=== PATIENT | male | born 1995 | race Caucasian/White ===

== ENCOUNTER 2017-01-13 23:03 | Emergency (ER) | payer BC ==
--- NOTE | 2017-01-14 01:24 | ED CLINICAL REPORT ---
Clinical Report - Physicians/Mid Levels [facility] [address] [place] [address] 01/13/2017 23:06 Patient: MAYE EDWARDS Arrived- By private vehicle. Historian- patient. HISTORY OF PRESENT ILLNESS Chief Complaint: Injury to the left foot. The injury happened today. (jumping). ( does not know how he landed). Patient is experiencing moderate pain. Patient denies injury to the head or neck. No other injury. (no loc.). REVIEW OF SYSTEMS The patient complains of pain on weight bearing. He has had swelling. No skin laceration. All systems otherwise negative, except as recorded above. PAST HISTORY See nurses notes. Tetanus immunization status is up-to-date. Problems: no known problems. Additional Surgeries: no known surgeries. Medications: None. Allergies: No Known Drug Allergy. SOCIAL HISTORY Never smoker. No alcohol use or drug use. No recent travel. Is a local resident. ADDITIONAL NOTES The nursing notes have been reviewed. PHYSICAL EXAM Vital Signs: 01/13/2017 23:52 BP: 123/74. HR: 93. RR: 16. O2 saturation: 100%. Temp: 98.9 F. Pain level now: 8/10. Blood pressure normal. Oxygen saturation normal. Appearance: Alert. Oriented X3. No acute distress. (non-toxic). Head: Head atraumatic. (normocephalic). Neck: Normal inspection. Neck supple. C-spine non-tender. No vertebral tenderness. CVS: Normal heart rate and rhythm. Heart sounds normal. Pulses normal. Respiratory: No respiratory distress. Breath sounds normal. Chest nontender. No rales, rhonchi or wheezes. Abdomen: No visible injury. Soft and nontender. Bowel sounds normal. Back: Normal inspection. No tenderness. ROM normal. No vertebral point tenderness, soft tissue tenderness or limitation in ROM. Skin: Skin intact. Skin warm and dry. Extremities: (tenderness and ecchymosis over the base of the fifth on the left foot. No other bony tenderness or abnormalities noted on examination. Foot is neurovascularly intact. Good dorsalis pedis and posterior tibialis pulses noted and 2+ compared to the contralateral side. Compartments are soft. No other overlying skin changes. Skin is intact. Rest). LABS, X-RAYS, AND EKG Lt Foot X-ray: (vulsion fracture at the base of the fifth metatarsal.). Views: 3 view foot series, AP, lateral and oblique. Technique: good. The X-rays were independently viewed by me and interpreted contemporaneously by me. PROGRESS AND PROCEDURES Course of Care: The patient is a pleasant 21-year-old male with no pertinent past medical history of present for evaluation of left-sided foot pain. On examination, patient has ecchymosis and swelling noted to the area. Patient has tenderness to the base of the fifth metatarsal. There is also overlying ecchymosis. His foot is neurovascularly intact. No concern for compartment syndrome at this time. X-ray of the patient's foot was reviewed as it was ordered prior to evaluation from triage. Foot x-ray indicates the patient has an avulsion type fracture of the the base of the fifth metatarsal. Does not appear to be a Sheth fracture. Patient be treated with a walking boot andfollow up with podiatry. Patient is agreeable to the treatment plan. On repeat examination, patient continues to be neurovascularly intact. I did discuss with the patient potential complication with poor healing for the fractureand need forpodiatry follow-upand monitoring. Patient agreed to the treatment and plan. Did not fill patient is being admitted to the hospital or require further emergency department workup/evaluation. Discussed the patient workup, diagnosis, home care, follow-up, and return precautions. All questiohe patient expressed understanding of these instructions and was agreeable to them. Disposition: Discharged. Condition: good. CLINICAL IMPRESSION 01/13/2017 23:52 BP: 123/74. HR: 93. RR: 16. O2 saturation: 100%. Temp: 98.9 F. Pain level now: 8/10. Blood pressure normal. Oxygen saturation normal. Closed avulsion fracture of the left fifth metatarsal (acute). INSTRUCTIONS Warnings: GENERAL WARNINGS: Return or contact your physician immediately if your condition worsens or changes unexpectedly, if not improving as expected, or if other problems arise. Specifically return if pain, vomiting, bleeding, breathing difficulty or fever. Your Current Medications: CONTINUE TAKING THE FOLLOWING MEDICATIONS: None*. Prescription Medications: Percocet 5 mg/325 mg: take 1 tablet orally every 6 hours as needed for pain. Dispense fifteen (15). No refill. Substitution is permissible. Follow-up: Return to the emergency department as needed. Follow up with your doctor in three days. Reason for referral: recheck today's concerns. Summary of care provided to patient via paper. Screening today revealed the patient's blood pressure to be in the normal range. The patient should follow up with a primary care provider for blood pressure management. Understanding of the discharge instructions verbalized by patient. Follow-up with: Rufus Fierro DPM, Podiatry, , [address], [place], [address] Follow up in one week. Reason for referral: recheck today's concerns. Summary of care provided to patient via paper. (Electronically signed by Tushar Sawyer Dr. 01/17/2017 12:35)
--- NOTE | 2017-01-14 01:24 | ED CLINICAL REPORT ---
Clinical Report - Physicians/Mid Levels [facility] [address] [place] [address] 01/13/2017 23:06 Patient: MAYE EDWARDS Arrived- By private vehicle. Historian- patient. HISTORY OF PRESENT ILLNESS Chief Complaint: Injury to the left foot. The injury happened today. (jumping). ( does not know how he landed). Patient is experiencing moderate pain. Patient denies injury to the head or neck. No other injury. (no loc.). REVIEW OF SYSTEMS The patient complains of pain on weight bearing. He has had swelling. No skin laceration. All systems otherwise negative, except as recorded above. PAST HISTORY See nurses notes. Tetanus immunization status is up-to-date. Problems: no known problems. Additional Surgeries: no known surgeries. Medications: None. Allergies: No Known Drug Allergy. SOCIAL HISTORY Never smoker. No alcohol use or drug use. No recent travel. Is a local resident. ADDITIONAL NOTES The nursing notes have been reviewed. PHYSICAL EXAM Vital Signs: 01/13/2017 23:52 BP: 123/74. HR: 93. RR: 16. O2 saturation: 100%. Temp: 98.9 F. Pain level now: 8/10. Blood pressure normal. Oxygen saturation normal. Appearance: Alert. Oriented X3. No acute distress. (non-toxic). Head: Head atraumatic. (normocephalic). Neck: Normal inspection. Neck supple. C-spine non-tender. No vertebral tenderness. CVS: Normal heart rate and rhythm. Heart sounds normal. Pulses normal. Respiratory: No respiratory distress. Breath sounds normal. Chest nontender. No rales, rhonchi or wheezes. Abdomen: No visible injury. Soft and nontender. Bowel sounds normal. Back: Normal inspection. No tenderness. ROM normal. No vertebral point tenderness, soft tissue tenderness or limitation in ROM. Skin: Skin intact. Skin warm and dry. Extremities: (tenderness and ecchymosis over the base of the fifth on the left foot. No other bony tenderness or abnormalities noted on examination. Foot is neurovascularly intact. Good dorsalis pedis and posterior tibialis pulses noted and 2+ compared to the contralateral side. Compartments are soft. No other overlying skin changes. Skin is intact. Rest). LABS, X-RAYS, AND EKG Lt Foot X-ray: (vulsion fracture at the base of the fifth metatarsal.). Views: 3 view foot series, AP, lateral and oblique. Technique: good. The X-rays were independently viewed by me and interpreted contemporaneously by me. PROGRESS AND PROCEDURES Course of Care: The patient is a pleasant 21-year-old male with no pertinent past medical history of present for evaluation of left-sided foot pain. On examination, patient has ecchymosis and swelling noted to the area. Patient has tenderness to the base of the fifth metatarsal. There is also overlying ecchymosis. His foot is neurovascularly intact. No concern for compartment syndrome at this time. X-ray of the patient's foot was reviewed as it was ordered prior to evaluation from triage. Foot x-ray indicates the patient has an avulsion type fracture of the the base of the fifth metatarsal. Does not appear to be a Sheth fracture. Patient be treated with a walking boot andfollow up with podiatry. Patient is agreeable to the treatment plan. On repeat examination, patient continues to be neurovascularly intact. I did discuss with the patient potential complication with poor healing for the fractureand need forpodiatry follow-upand monitoring. Patient agreed to the treatment and plan. Did not fill patient is being admitted to the hospital or require further emergency department workup/evaluation. Discussed the patient workup, diagnosis, home care, follow-up, and return precautions. All questiohe patient expressed understanding of these instructions and was agreeable to them. Disposition: Discharged. Condition: good. CLINICAL IMPRESSION 01/13/2017 23:52 BP: 123/74. HR: 93. RR: 16. O2 saturation: 100%. Temp: 98.9 F. Pain level now: 8/10. Blood pressure normal. Oxygen saturation normal. Closed avulsion fracture of the left fifth metatarsal (acute). INSTRUCTIONS Warnings: GENERAL WARNINGS: Return or contact your physician immediately if your condition worsens or changes unexpectedly, if not improving as expected, or if other problems arise. Specifically return if pain, vomiting, bleeding, breathing difficulty or fever. Your Current Medications: CONTINUE TAKING THE FOLLOWING MEDICATIONS: None*. Prescription Medications: Percocet 5 mg/325 mg: take 1 tablet orally every 6 hours as needed for pain. Dispense fifteen (15). No refill. Substitution is permissible. Follow-up: Return to the emergency department as needed. Follow up with your doctor in three days. Reason for referral: recheck today's concerns. Summary of care provided to patient via paper. Screening today revealed the patient's blood pressure to be in the normal range. The patient should follow up with a primary care provider for blood pressure management. Understanding of the discharge instructions verbalized by patient. Follow-up with: Rufus Fierro DPM, Podiatry, , [address], [place], [address] Follow up in one week. Reason for referral: recheck today's concerns. Summary of care provided to patient via paper. (Electronically signed by Tushar Sawyer Dr. 01/17/2017 12:35)
--- NOTE | 2017-01-14 01:24 | ED ORDER SUMMARY ---
..... Patient: MAYE EDWARDS T OrderSheet [facility] VisitID: [id number] [address] [place] [address] 21y, M Registration Date/Time: 01/13/2017 ORDER SHEET Weight: 90.7 kg (stated) Allergies: No Known Drug Allergy GENERAL ORDERS: Foot 3V Left Urgent (00:47 01/14/2017 Bill Lyman.NRaven per protocol) (Ack 0:48 [facility] Web Ui Designer) (0:58 Clemente) - (surgical boot, left) (01:23 01/14/2017 Annalisa Frost) (1:58 JQuivekassie R.N.) MEDICATION ORDERS: Percocet PO 5/325 mg (HIGH ALERT MEDICATION, NOW) (01:41 01/14/2017 Annalisa Frost) (Ack 1:54 JQuivekassie R.N.) (1:58 JQuivey R.N.) IV FLUIDS: ORDER SHEET NOTES: [Electronically signed by Chucho Hyatt R.N. (02:59 01/14/2017)] [Electronically signed by Tushar Sawyer Dr. (12:35 01/17/2017)] [Electronically locked/signed by Chucho Hyatt R.N. (02:59 01/14/2017)]
--- NOTE | 2017-01-14 01:24 | ED NURSING NOTES ---
Clinical Report - Nurses [facility] [address] [place] [address] 01/13/2017 23:06 Patient: MAYE EDWARDS TRIAGE Triage time 23:54. Acuity: LEVEL 4. Chief Complaint: INJURY TO LEFT ANKLE. 23:57. --23:57 Princess Mendieta R.N. 23:52 01/13/17. BP: 123/74 taken on the left arm, via an automated monitor, while sitting. HR: 93 (regular and normal rate). RR: 16 (regular, unlabored and normal). O2 saturation: 100% on room air. Temp: 98.9 F (oral). Pain level now: 07/06. --23:57 Princess Mendieta R.N. Weight: 90.7 kg stated. Height/Length: 73 inches Per Patient. BMI: 26.4. --23:53 Princess Mendieta R.N. Medications None. --23:56 Princess Mendieta R.N. Allergies No Known Drug Allergy. --23:56 Princess Mendieta R.N. History Arrived by private vehicle. Historian: patient. Accompanied by mother. This occurred (3 hours ago). Mechanism of injury: sustained an eversion injury while jumping. Treatment TRAINING ANALYST: (motrin). PAST MEDICAL HX: Tetanus status: unknown. Immunizations: status is unknown. SOCIAL HX: Never smoker. No alcohol use or drug use. FALL RISK ASSESSMENT: Fall risk assessment completed. No fall risk identified. NUTRITIONAL RISK ASSESSMENT: The nutritional risk assessment revealed no deficiencies. FUNCTIONAL ASSESSMENT: Functional assessment: no impairments noted. LEARNING NEEDS ASSESSMENT: The learning needs assessment revealed no barriers. SKIN INTEGRITY ASSESSMENT: Skin integrity risk assessment completed. No skin integrity risk identified. --23:57 Princess Mendieta R.N. Treatment TRAINING ANALYST: Took ibuprofen. (600mg at 2300). --00:49 Chucho Hyatt R.N. PROBLEMS: no known problems. ADDITIONAL SURGERIES: no known surgeries. Interventions ID band on patient. --23:57 Princess Mendieta R.N. PHYSICAL ASSESSMENT 00:48. To room via wheelchair. GENERAL / NEURO / PSYCH: Oriented X 4. Alert. EXTREMITIES: Extremity pulses are within normal limits. Neuro-vascular status intact to the extremity. Left foot: swelling and ecchymosis. SKIN: Skin intact. Skin is warm and dry. --00:48 Chucho Hyatt R.N. NURSING PROGRESS NOTES 00:48. Two patient identifiers checked. Call light placed in reach. Bed placed in lowest position. Brakes of bed on. Patient ready for evaluation- chart flagged. --00:48 Chucho Hyatt R.N. 00:52. Cold pack applied to the left foot. --00:52 Chucho Hyatt R.N. 00:52 Portable x-ray left foot. --00:52 Chucho Hyatt R.N. 01:58 01/14/2017 Percocet (Oxycodone-Acetaminophen) PO 5/325 mg Tablets 1 tab given. Allergies verified, confirmed 5 rights and sedative warning given to the patient and patient's family. --01:58 Chucho Hyatt R.N. Ortho boot applied to left foot by [employer] (0155). --02:00 Soraya Dunn Extremities: Neuro-vascular status intact to the extremities. 02:00. The patient is calm and resting quietly. Overall patient status- he states feels better. GENERAL / NEURO / PSYCH: Alert. Oriented X 4. RESPIRATORY: No respiratory distress. SKIN: Skin is warm and dry. --02:05 Chucho Hyatt R.N. DISPOSITION / DISCHARGE Departure time: 02:05. Condition at departure: stable. No learning barriers present. Discharge instructions provided and reviewed with the patient and parent. Reviewed medication(s) side effects, precautions, dosing and course information. Prescription(s) given to the patient. Patient and parent verbalized understanding. The patient was discharged home and accompanied by parent. He left the Emergency Department ambulatory and via private vehicle. Parent driving. FALL RISK ASSESSMENT: Fall risk assessment completed. No fall risk identified. --02:05 Chucho Hyatt R.N. 02:03 01/14/17. BP: 108/71. HR: 68. RR: 14. O2 saturation: 99%. Pain level now: 01/06. --02:05 Chucho Hyatt R.N. Locked/Released at 01/14/2017 2:59 by Chucho Hyatt R.N.
--- NOTE | 2017-01-14 01:24 | ED ORDER SUMMARY ---
..... Patient: MAYE EDWARDS T OrderSheet [facility] VisitID: [id number] [address] [place] [address] 21y, M Registration Date/Time: 01/13/2017 ORDER SHEET Weight: 90.7 kg (stated) Allergies: No Known Drug Allergy GENERAL ORDERS: Foot 3V Left Urgent (00:47 01/14/2017 Bill Lyman.NRaven per protocol) (Ack 0:48 [facility] Manager Service Desk) (0:58 Clemente) - (surgical boot, left) (01:23 01/14/2017 Annalisa Frost) (1:58 JQuivekassie R.N.) MEDICATION ORDERS: Percocet PO 5/325 mg (HIGH ALERT MEDICATION, NOW) (01:41 01/14/2017 Annalisa Frost) (Ack 1:54 JQuivekassie R.N.) (1:58 JQuivey R.N.) IV FLUIDS: ORDER SHEET NOTES: [Electronically signed by Chucho Hyatt R.N. (02:59 01/14/2017)] [Electronically signed by Tushar Sawyer Dr. (12:35 01/17/2017)] [Electronically locked/signed by Chucho Hyatt R.N. (02:59 01/14/2017)]
--- NOTE | 2017-01-14 01:24 | ED NURSING NOTES ---
Clinical Report - Nurses [facility] [address] [place] [address] 01/13/2017 23:06 Patient: MAYE EDWARDS TRIAGE Triage time 23:54. Acuity: LEVEL 4. Chief Complaint: INJURY TO LEFT ANKLE. 23:57. --23:57 Princess Mendieta R.N. 23:52 01/13/17. BP: 123/74 taken on the left arm, via an automated monitor, while sitting. HR: 93 (regular and normal rate). RR: 16 (regular, unlabored and normal). O2 saturation: 100% on room air. Temp: 98.9 F (oral). Pain level now: 07/06. --23:57 Princess Mendieta R.N. Weight: 90.7 kg stated. Height/Length: 73 inches Per Patient. BMI: 26.4. --23:53 Princess Mendieta R.N. Medications None. --23:56 Princess Mendieta R.N. Allergies No Known Drug Allergy. --23:56 Princess Mendieta R.N. History Arrived by private vehicle. Historian: patient. Accompanied by mother. This occurred (3 hours ago). Mechanism of injury: sustained an eversion injury while jumping. Treatment FURNITURE POLISHER: (motrin). PAST MEDICAL HX: Tetanus status: unknown. Immunizations: status is unknown. SOCIAL HX: Never smoker. No alcohol use or drug use. FALL RISK ASSESSMENT: Fall risk assessment completed. No fall risk identified. NUTRITIONAL RISK ASSESSMENT: The nutritional risk assessment revealed no deficiencies. FUNCTIONAL ASSESSMENT: Functional assessment: no impairments noted. LEARNING NEEDS ASSESSMENT: The learning needs assessment revealed no barriers. SKIN INTEGRITY ASSESSMENT: Skin integrity risk assessment completed. No skin integrity risk identified. --23:57 Princess Mendieta R.N. Treatment FURNITURE POLISHER: Took ibuprofen. (600mg at 2300). --00:49 Chucho Hyatt R.N. PROBLEMS: no known problems. ADDITIONAL SURGERIES: no known surgeries. Interventions ID band on patient. --23:57 Princess Mendieta R.N. PHYSICAL ASSESSMENT 00:48. To room via wheelchair. GENERAL / NEURO / PSYCH: Oriented X 4. Alert. EXTREMITIES: Extremity pulses are within normal limits. Neuro-vascular status intact to the extremity. Left foot: swelling and ecchymosis. SKIN: Skin intact. Skin is warm and dry. --00:48 Chucho Hyatt R.N. NURSING PROGRESS NOTES 00:48. Two patient identifiers checked. Call light placed in reach. Bed placed in lowest position. Brakes of bed on. Patient ready for evaluation- chart flagged. --00:48 Chucho Hyatt R.N. 00:52. Cold pack applied to the left foot. --00:52 Chucho Hyatt R.N. 00:52 Portable x-ray left foot. --00:52 Chucho Hyatt R.N. 01:58 01/14/2017 Percocet (Oxycodone-Acetaminophen) PO 5/325 mg Tablets 1 tab given. Allergies verified, confirmed 5 rights and sedative warning given to the patient and patient's family. --01:58 Chucho Hytat R.N. Ortho boot applied to left foot by [employer] ([id number]). --02:00 Soraya Dunn Extremities: Neuro-vascular status intact to the extremities. 02:00. The patient is calm and resting quietly. Overall patient status- he states feels better. GENERAL / NEURO / PSYCH: Alert. Oriented X 4. RESPIRATORY: No respiratory distress. SKIN: Skin is warm and dry. --02:05 Chucho Hyatt R.N. DISPOSITION / DISCHARGE Departure time: 02:05. Condition at departure: stable. No learning barriers present. Discharge instructions provided and reviewed with the patient and parent. Reviewed medication(s) side effects, precautions, dosing and course information. Prescription(s) given to the patient. Patient and parent verbalized understanding. The patient was discharged home and accompanied by parent. He left the Emergency Department ambulatory and via private vehicle. Parent driving. FALL RISK ASSESSMENT: Fall risk assessment completed. No fall risk identified. --02:05 Chucho Hyatt R.N. 02:03 01/14/17. BP: 108/71. HR: 68. RR: 14. O2 saturation: 99%. Pain level now: 01/06. --02:05 Chucho Hyatt R.N. Locked/Released at 01/14/2017 2:59 by Chucho Hyatt R.N.
--- NOTE | 2017-01-14 08:54 | DIAGNOSTIC IMAGING REPORT ---
PROCEDURE: XR FOOT 3 VIEWS - LEFT INDICATION: TRAUMA/INJURY TECHNIQUE: Three views. COMPARISON: None. FINDINGS: Transverse fracture at the base of the fifth metatarsal with minor distraction. Pes planus. There is soft tissue swelling over the dorsum of the foot. IMPRESSION: 1. Left fifth metatarsal fracture 2. Pes planus
--- NOTE | 2017-01-17 12:35 | ED DISCHARGE INSTRUCTIONS ---
Patient: MAYE EDWARDS General Instructions [facility] VisitID: [id number] [place] [address] 21y, M Registration Date/Time: 01/13/2017 01/13/2017 23:52 BP: 123/74. HR: 93. RR: 16. O2 saturation: 100%. Temp: 98.9 F. Pain level now: 8/10. Blood pressure normal. Oxygen saturation normal. Closed avulsion fracture of the left fifth metatarsal (acute). INSTRUCTIONS Warnings: GENERAL WARNINGS: Return or contact your physician immediately if your condition worsens or changes unexpectedly, if not improving as expected, or if other problems arise. Specifically return if pain, vomiting, bleeding, breathing difficulty or fever. Your Current Medications: CONTINUE TAKING THE FOLLOWING MEDICATIONS: None*. Prescription Medications: Percocet 5 mg/325 mg: take 1 tablet orally every 6 hours as needed for pain. Dispense fifteen (15). No refill. Substitution is permissible. Follow-up: Return to the emergency department as needed. Follow up with your doctor in three days. Reason for referral: recheck today's concerns. Summary of care provided to patient via paper. Screening today revealed the patient's blood pressure to be in the normal range. The patient should follow up with a primary care provider for blood pressure management. Understanding of the discharge instructions verbalized by patient. Follow-up with: Rufus Fierro DPM, Podiatry, , [address], [address], [place], [address] Follow up in one week. Reason for referral: recheck today's concerns. Summary of care provided to patient via paper. ADDITIONAL INFORMATION Fracture:Foot You have a fracture (break) of one of the bones in your foot. This will cause pain, swelling and sometimes bruising. It will take about 4-6 weeks to heal. A foot fracture may be treated with a special shoe, splint, cast or boot. Home Care: You may be given a splint, cast, shoe or boot to prevent movement at the injury. Unless you were told otherwise, use crutches or a walker and do not bear weight on the injured foot until cleared by your doctor to do so. (Crutches and walkers can be rented at many pharmacies and surgical/orthopedic supply stores). Do not put weight on a splint; it will break. Keep your leg elevated to reduce pain and swelling. When sleeping, place a pillow under the injured leg. When sitting, support the injured leg so it is level with your waist. This is very important during the first 48 hours. Apply an ice pack (ice cubes in a plastic bag, wrapped in a towel) over the injured area for 20 minutes every 1-2 hours the first day. You can place the ice pack directly over the splint/cast. Unless told otherwise, you can open the boot or shoe to apply ice. Continue with ice packs 3-4 times a day for the next two days, then as needed for the relief of pain and swelling. Keep the splint/cast/boot/shoe dry. When bathing, protect it with a large plastic bag, rubber-banded at the top end. If a fiberglass splint/cast or boot gets wet, you can dry it with a hair-dryer. Unless told otherwise, you can remove a boot or shoe to bathe. You may use acetaminophen (Tylenol) or ibuprofen (Motrin, Advil) to control pain, unless another pain medicine was prescribed. [NOTE: If you have chronic liver or kidney disease or ever had a stomach ulcer or GI bleeding, talk with your doctor before using these medicines.] Follow Up with your doctor within one week, or as advised by our staff, to be sure the bone is healing properly. If you were given a splint, it may be changed to a cast or boot at your follow-up visit.[NOTE: A radiologist will review any X-rays that were taken. We will notify you of any new findings that may affect your care.] Get Prompt Medical Attention if any of the following occur: The plaster cast or splint becomes wet or soft The fiberglass cast or splint remains wet for more than 24 hours Increased tightness or pain under the cast or splint Toes become swollen, cold, blue, numb or tingly Oxycodone Hydrochloride, Acetaminophen Oral tablet What is this medicine? ACETAMINOPHEN; OXYCODONE (a set a LUCITA krystle fen; ox i KOE done) is a pain reliever. It is used to treat mild to moderate pain. How should I use this medicine? Take this medicine by mouth with a full glass of water. Follow the directions on the prescription label. Take your medicine at regular intervals. Do not take your medicine more often than directed. Talk to your core inserter regarding the use of this medicine in children. Special care may be needed. Patients over 65 years old may have a stronger reaction and need a smaller dose. What side effects may I notice from receiving this medicine? Side effects that you should report to your doctor or health regular senior care provider as soon as possible: allergic reactions like skin rash, itching or hives, swelling of the face, lips, or tongue breathing difficulties, wheezing confusion light headedness or fainting spells severe stomach pain yellowing of the skin or the whites of the eyes Side effects that usually do not require medical attention (report to your doctor or health regular senior care provider if they continue or are bothersome): dizziness drowsiness nausea vomiting What may interact with this medicine? alcohol antihistamines barbiturates like amobarbital, butalbital, butabarbital, methohexital, pentobarbital, phenobarbital, thiopental, and secobarbital benztropine drugs for bladder problems like solifenacin, trospium, oxybutynin, tolterodine, hyoscyamine, and methscopolamine drugs for breathing problems like ipratropium and tiotropium drugs for certain stomach or intestine problems like propantheline, homatropine methylbromide, glycopyrrolate, atropine, belladonna, and dicyclomine general anesthetics like etomidate, ketamine, nitrous oxide, propofol, desflurane, enflurane, halothane, isoflurane, and sevoflurane medicines for depression, anxiety, or psychotic disturbances medicines for sleep muscle relaxants naltrexone narcotic medicines (opiates) for pain phenothiazines like perphenazine, thioridazine, chlorpromazine, mesoridazine, fluphenazine, prochlorperazine, promazine, and trifluoperazine scopolamine tramadol trihexyphenidyl What if I miss a dose? If you miss a dose, take it as soon as you can. If it is almost time for your next dose, take only that dose. Do not take double or extra doses. Where should I keep my medicine? Keep out of the reach of children. This medicine can be abused. Keep your medicine in a safe place to protect it from theft. Do not share this medicine with anyone. Selling or giving away this medicine is dangerous and against the law. Store at room temperature between 20 and 25 degrees C (68 and 77 degrees F). Keep container tightly closed. Protect from light. This medicine may cause accidental overdose and if it is taken by other adults, children, or pets. Flush any unused medicine down the toilet to reduce the chance of harm. Do not use the medicine after the expiration date. What should I tell my health care provider before I take this medicine? They need to know if you have any of these conditions: brain tumor Crohn's disease, inflammatory bowel disease, or ulcerative colitis drink more than 3 alcohol containing drinks per day drug abuse or addiction head injury heart or circulation problems kidney disease or problems going to the bathroom liver disease lung disease, asthma, or breathing problems an unusual or allergic reaction to acetaminophen, oxycodone, other opioid analgesics, other medicines, foods, dyes, or preservatives or trying to get breast-feeding What should I watch for while using this medicine? Tell your doctor or health regular senior care provider if your pain does not go away, if it gets worse, or if you have new or a different type of pain. You may develop tolerance to the medicine. Tolerance means that you will need a higher dose of the medication for pain relief. Tolerance is normal and is expected if you take this medicine for a long time. Do not suddenly stop taking your medicine because you may develop a severe reaction. Your body becomes used to the medicine. This does NOT mean you are addicted. Addiction is a behavior related to getting and using a drug for a non-medical reason. If you have pain, you have a medical reason to take pain medicine. Your doctor will tell you how much medicine to take. If your doctor wants you to stop the medicine, the dose will be slowly lowered over time to avoid any side effects. You may get drowsy or dizzy. Do not drive, use machinery, or do anything that needs mental alertness until you know how this medicine affects you. Do not stand or sit up quickly, especially if you are an older patient. This reduces the risk of dizzy or fainting spells. Alcohol may interfere with the effect of this medicine. Avoid alcoholic drinks. There are different types of narcotic medicines (opiates) for pain. If you take more than one type at the same time, you may have more side effects. Give your health care provider a list of all medicines you use. Your doctor will tell you how much medicine to take. Do not take more medicine than directed. Call emergency for help if you have problems breathing. The medicine will cause constipation. Try to have a bowel movement at least every 2 to 3 days. If you do not have a bowel movement for 3 days, call your doctor or health regular senior care provider. Do not take Tylenol (acetaminophen) or medicines that have acetaminophen with this medicine. Too much acetaminophen can be very dangerous. Many nonprescription medicines contain acetaminophen. Always read the labels carefully to avoid taking more acetaminophen. You have been given the following additional information: Fracture, Foot Oxycodone Hydrochloride, Acetaminophen Oral tablet (Electronically signed by Tushar Sawyer Dr. 01/17/2017 12:35)
--- NOTE | 2017-01-17 12:35 | ED MAR SUMMARY ---
..... Medication Administration Record [facility] [address] [place] [address] Patient: MAYE EDWARDS Visit ID: [id number] 21y, M Weight: 90.7 kg Height/Length: 73 in BMI: 26.4 ALLERGIES: No Known Drug Allergy Given 01:58 01/14/2017 Chucho Hyatt R.N. Medication Administered: PERCOCET [PO] (OXYCODONE-ACETAMINOPHEN), Dose: 1 tab 5/325 mg Tablets PO. Medication Ordered: Percocet PO 5/325 mg (HIGH ALERT MEDICATION, NOW).
--- NOTE | 2017-01-17 12:35 | ED DISCHARGE INSTRUCTIONS ---
Patient: MAYE EDWARDS General Instructions [facility] VisitID: [id number] [place] [address] 21y, M Registration Date/Time: 01/13/2017 01/13/2017 23:52 BP: 123/74. HR: 93. RR: 16. O2 saturation: 100%. Temp: 98.9 F. Pain level now: 8/10. Blood pressure normal. Oxygen saturation normal. Closed avulsion fracture of the left fifth metatarsal (acute). INSTRUCTIONS Warnings: GENERAL WARNINGS: Return or contact your physician immediately if your condition worsens or changes unexpectedly, if not improving as expected, or if other problems arise. Specifically return if pain, vomiting, bleeding, breathing difficulty or fever. Your Current Medications: CONTINUE TAKING THE FOLLOWING MEDICATIONS: None*. Prescription Medications: Percocet 5 mg/325 mg: take 1 tablet orally every 6 hours as needed for pain. Dispense fifteen (15). No refill. Substitution is permissible. Follow-up: Return to the emergency department as needed. Follow up with your doctor in three days. Reason for referral: recheck today's concerns. Summary of care provided to patient via paper. Screening today revealed the patient's blood pressure to be in the normal range. The patient should follow up with a primary care provider for blood pressure management. Understanding of the discharge instructions verbalized by patient. Follow-up with: Rufus Fierro DPM, Podiatry, , [address], [place], [address] Follow up in one week. Reason for referral: recheck today's concerns. Summary of care provided to patient via paper. ADDITIONAL INFORMATION Fracture:Foot You have a fracture (break) of one of the bones in your foot. This will cause pain, swelling and sometimes bruising. It will take about 4-6 weeks to heal. A foot fracture may be treated with a special shoe, splint, cast or boot. Home Care: You may be given a splint, cast, shoe or boot to prevent movement at the injury. Unless you were told otherwise, use crutches or a walker and do not bear weight on the injured foot until cleared by your doctor to do so. (Crutches and walkers can be rented at many pharmacies and surgical/orthopedic supply stores). Do not put weight on a splint; it will break. Keep your leg elevated to reduce pain and swelling. When sleeping, place a pillow under the injured leg. When sitting, support the injured leg so it is level with your waist. This is very important during the first 48 hours. Apply an ice pack (ice cubes in a plastic bag, wrapped in a towel) over the injured area for 20 minutes every 1-2 hours the first day. You can place the ice pack directly over the splint/cast. Unless told otherwise, you can open the boot or shoe to apply ice. Continue with ice packs 3-4 times a day for the next two days, then as needed for the relief of pain and swelling. Keep the splint/cast/boot/shoe dry. When bathing, protect it with a large plastic bag, rubber-banded at the top end. If a fiberglass splint/cast or boot gets wet, you can dry it with a hair-dryer. Unless told otherwise, you can remove a boot or shoe to bathe. You may use acetaminophen (Tylenol) or ibuprofen (Motrin, Advil) to control pain, unless another pain medicine was prescribed. [NOTE: If you have chronic liver or kidney disease or ever had a stomach ulcer or GI bleeding, talk with your doctor before using these medicines.] Follow Up with your doctor within one week, or as advised by our staff, to be sure the bone is healing properly. If you were given a splint, it may be changed to a cast or boot at your follow-up visit.[NOTE: A radiologist will review any X-rays that were taken. We will notify you of any new findings that may affect your care.] Get Prompt Medical Attention if any of the following occur: The plaster cast or splint becomes wet or soft The fiberglass cast or splint remains wet for more than 24 hours Increased tightness or pain under the cast or splint Toes become swollen, cold, blue, numb or tingly Oxycodone Hydrochloride, Acetaminophen Oral tablet What is this medicine? ACETAMINOPHEN; OXYCODONE (a set a LUCITA krystle fen; ox i KOE done) is a pain reliever. It is used to treat mild to moderate pain. How should I use this medicine? Take this medicine by mouth with a full glass of water. Follow the directions on the prescription label. Take your medicine at regular intervals. Do not take your medicine more often than directed. Talk to your rnfa regarding the use of this medicine in children. Special care may be needed. Patients over 65 years old may have a stronger reaction and need a smaller dose. What side effects may I notice from receiving this medicine? Side effects that you should report to your doctor or health customer care associate as soon as possible: allergic reactions like skin rash, itching or hives, swelling of the face, lips, or tongue breathing difficulties, wheezing confusion light headedness or fainting spells severe stomach pain yellowing of the skin or the whites of the eyes Side effects that usually do not require medical attention (report to your doctor or health customer care associate if they continue or are bothersome): dizziness drowsiness nausea vomiting What may interact with this medicine? alcohol antihistamines barbiturates like amobarbital, butalbital, butabarbital, methohexital, pentobarbital, phenobarbital, thiopental, and secobarbital benztropine drugs for bladder problems like solifenacin, trospium, oxybutynin, tolterodine, hyoscyamine, and methscopolamine drugs for breathing problems like ipratropium and tiotropium drugs for certain stomach or intestine problems like propantheline, homatropine methylbromide, glycopyrrolate, atropine, belladonna, and dicyclomine general anesthetics like etomidate, ketamine, nitrous oxide, propofol, desflurane, enflurane, halothane, isoflurane, and sevoflurane medicines for depression, anxiety, or psychotic disturbances medicines for sleep muscle relaxants naltrexone narcotic medicines (opiates) for pain phenothiazines like perphenazine, thioridazine, chlorpromazine, mesoridazine, fluphenazine, prochlorperazine, promazine, and trifluoperazine scopolamine tramadol trihexyphenidyl What if I miss a dose? If you miss a dose, take it as soon as you can. If it is almost time for your next dose, take only that dose. Do not take double or extra doses. Where should I keep my medicine? Keep out of the reach of children. This medicine can be abused. Keep your medicine in a safe place to protect it from theft. Do not share this medicine with anyone. Selling or giving away this medicine is dangerous and against the law. Store at room temperature between 20 and 25 degrees C (68 and 77 degrees F). Keep container tightly closed. Protect from light. This medicine may cause accidental overdose and if it is taken by other adults, children, or pets. Flush any unused medicine down the toilet to reduce the chance of harm. Do not use the medicine after the expiration date. What should I tell my health care provider before I take this medicine? They need to know if you have any of these conditions: brain tumor Crohn's disease, inflammatory bowel disease, or ulcerative colitis drink more than 3 alcohol containing drinks per day drug abuse or addiction head injury heart or circulation problems kidney disease or problems going to the bathroom liver disease lung disease, asthma, or breathing problems an unusual or allergic reaction to acetaminophen, oxycodone, other opioid analgesics, other medicines, foods, dyes, or preservatives or trying to get breast-feeding What should I watch for while using this medicine? Tell your doctor or health customer care associate if your pain does not go away, if it gets worse, or if you have new or a different type of pain. You may develop tolerance to the medicine. Tolerance means that you will need a higher dose of the medication for pain relief. Tolerance is normal and is expected if you take this medicine for a long time. Do not suddenly stop taking your medicine because you may develop a severe reaction. Your body becomes used to the medicine. This does NOT mean you are addicted. Addiction is a behavior related to getting and using a drug for a non-medical reason. If you have pain, you have a medical reason to take pain medicine. Your doctor will tell you how much medicine to take. If your doctor wants you to stop the medicine, the dose will be slowly lowered over time to avoid any side effects. You may get drowsy or dizzy. Do not drive, use machinery, or do anything that needs mental alertness until you know how this medicine affects you. Do not stand or sit up quickly, especially if you are an older patient. This reduces the risk of dizzy or fainting spells. Alcohol may interfere with the effect of this medicine. Avoid alcoholic drinks. There are different types of narcotic medicines (opiates) for pain. If you take more than one type at the same time, you may have more side effects. Give your health care provider a list of all medicines you use. Your doctor will tell you how much medicine to take. Do not take more medicine than directed. Call emergency for help if you have problems breathing. The medicine will cause constipation. Try to have a bowel movement at least every 2 to 3 days. If you do not have a bowel movement for 3 days, call your doctor or health customer care associate. Do not take Tylenol (acetaminophen) or medicines that have acetaminophen with this medicine. Too much acetaminophen can be very dangerous. Many nonprescription medicines contain acetaminophen. Always read the labels carefully to avoid taking more acetaminophen. You have been given the following additional information: Fracture, Foot Oxycodone Hydrochloride, Acetaminophen Oral tablet (Electronically signed by Tushar Sawyer Dr. 01/17/2017 12:35)
--- NOTE | 2017-01-17 12:35 | ED MED RECONCILIATION SUMMARY ---
Patient: MAYE EDWARDS Medication Reconciliation Report [facility] VisitID: [id number] [address] [place] [address] 21y, M Registration Date/Time: 01/13/2017 Weight: 90.7 kg Height/Length: 73 in. BMI: 26.4 ALLERGIES: No Known Drug Allergy The patient's Home Medications are listed below: NONE. The source(s) of the original Home Medication information: Not obtained. The following Medications were given to the patient in the Emergency Department: Percocet [PO] PO 1 tab, administered: 01/14/2017 1:58:00 AM The following Medications were prescribed to the patient: Percocet 5 mg/325 mg: take 1 tablet orally every 6 hours as needed for pain. Dispense fifteen (15). No refill. Substitution is permissible. -- Tushar Sawyer Dr.
--- NOTE | 2017-01-17 12:35 | ED MAR SUMMARY ---
..... Medication Administration Record [facility] [address] [place] [place] [address] Patient: MAYE EDWARDS Visit ID: [id number] 21y, M Weight: 90.7 kg Height/Length: 73 in BMI: 26.4 ALLERGIES: No Known Drug Allergy Given 01:58 01/14/2017 Chucho Hyatt R.N. Medication Administered: PERCOCET [PO] (OXYCODONE-ACETAMINOPHEN), Dose: 1 tab 5/325 mg Tablets PO. Medication Ordered: Percocet PO 5/325 mg (HIGH ALERT MEDICATION, NOW).
--- NOTE | 2017-01-17 12:35 | ED MED RECONCILIATION SUMMARY ---
Patient: MAYE EDWARDS Medication Reconciliation Report [facility] VisitID: [id number] [address] [place] [address] 21y, M Registration Date/Time: 01/13/2017 Weight: 90.7 kg Height/Length: 73 in. BMI: 26.4 ALLERGIES: No Known Drug Allergy The patient's Home Medications are listed below: NONE. The source(s) of the original Home Medication information: Not obtained. The following Medications were given to the patient in the Emergency Department: Percocet [PO] PO 1 tab, administered: 01/14/2017 1:58:00 AM The following Medications were prescribed to the patient: Percocet 5 mg/325 mg: take 1 tablet orally every 6 hours as needed for pain. Dispense fifteen (15). No refill. Substitution is permissible. -- Tushar Sawyer Dr.
== END 2017-01-14 02:05 | disposition home or self-care (01) ==
LOC: ED SRH 23:03
DX: S92.352A Displaced fracture of fifth metatarsal bone, left foot, initial encounter for closed fracture (principal); X50.3XXA Overexertion from repetitive movements, initial encounter; Y93.39 Activity, other involving climbing, rappelling and jumping off; Y99.8 Other external cause status; Y92.9 Unspecified place or not applicable